=== PATIENT | female | born 1975 | race African-American/Black ===

== ENCOUNTER 2018-01-13 11:38 | Inpatient (IN) | payer OTHER ==
[2018-01-13 14:25] VITALS: BMI 31.6
--- NOTE | 2018-01-13 16:26 | HP ---
CIWA Score Nausea/Vomitin-Mild Nausea/No Vomiting Muscle Tremors: None Anxiety: 4-Mod. Anxious/Guarded Agitation: 4-Moderately Restless Paroxysmal Sweats: No Perspiration Orientation: 0-Oriented Tacttile Disturbances: 2-Mild Itch/Numbness/Burn Auditory Disturbances: 0-None Visual Disturbances: 0-None Headache: 2-Mild CIWA-Ar Total Score: 13 - Admission Criteria OASAS Guidelines: Admission for Medically Managed Detox: Requires at least one of the followin. CIWA greater than 12 2. Seizures within the past 24 hours 3. Delirium tremens within the past 24 hours 4. Hallucinations within the past 24 hours 5. Acute intervention needed for co occurring medical disorder 6. Acute intervention needed for co occurring psychiatric disorder 7. Severe withdrawal that cannot be handled at a lower level of care (continued vomiting, continued diarrhea, abnormal vital signs) requiring intravenous medication and/or fluids 8. Admission ROS [facility] Chief Complaint: PATIENT PRESENTS WITH ETOH WITHDRAWAL SYMPTOMS Allergies/Adverse Reactions: Allergies Allergy/AdvReac Type Severity Reaction Status Date / Time No Known Allergies Allergy Verified 01/13/18 15:41 History of Present Illness: PATIENT PRESENTS WITH ETOH WITHDRAWAL SYMPTOMS. PATIENT STARTED DRINKING AT AGE 13 AND DRINKS 3 PINTS DAILY. LAST DRINK WAS LATE THIS MORNING. PATIENT DENIES H/ O SEIZURE, BLACK OUTS. PATIENT USUALLY HAS DRINK FIRST THING IN THE MORNING. SOCIAL [employer]IJ[employer]MO[employer]. LAST DETOX WAS AT [facility] 10/2017. LONGEST PERIOD OF SOBRIETY 5 YEARS. PATIENT HAS HX OF BINGE DRINKING FOR WEEKS AT A TIME. PMH INCLUDES HTN, ANEMIA AND BIPOLAR DISORDER. PATIENT DENIES SI/HI AND SUICIDE ATTEMPTS. Exam Limitations: No Limitations - Ebola screening Have you traveled outside of the country in the last 21 days: No Have you had contact with anyone from an Ebola affected area: No Have you been sick,other than usual withdrawal symptoms: No Do you have a fever: No - Review of Systems Constitutional: Night Sweats, Changes in sleep EENT: reports: No Symptoms Reported Respiratory: reports: No Symptoms reported Cardiac: reports: No Symptoms Reported GI: reports: Constipated, Poor Fluid Intake : reports: No Symptoms Reported Musculoskeletal: reports: Joint Pain Integumentary: reports: No Symptoms Reported Neuro: reports: Headache, Numbness, Tingling Endocrine: reports: No Symptoms Reported Hematology: reports: Anemia Psychiatric: reports: Orientated x3, Anxious, Depressed Patient History - Patient Medical History Hx Anemia: Yes Hx Asthma: No Hx Chronic Obstructive Pulmonary Disease (COPD): No Hx Cancer: No Hx Cardiac Disorders: No Hx Congestive Heart Failure: No Hx Hypertension: Yes (ON MEDICATION) Hx Hypercholesterolemia: No Hx Pacemaker: No HX Cerebrovascular Accident: No Hx Seizures: No Hx Dementia: No Hx Diabetes: No Hx Gastrointestinal Disorders: No Hx Liver Disease: No Hx Genitourinary Disorders: No Hx Sexually Transmitted Disorders: No Hx Renal Disease (ESRD): No Hx Thyroid Disease: No Hx Human Immunodeficiency Virus (HIV): No Hx Hepatitis C: No Hx Depression: Yes Hx Suicide Attempt: No (denies) Hx Bipolar Disorder: No Hx Schizophrenia: No - Patient Surgical History Past Surgical History: Yes Hx Neurologic Surgery: No Hx Cataract Extraction: No Hx Cardiac Surgery: No Hx Lung Surgery: No Hx Breast Surgery: No Hx Breast Biopsy: No Hx Abdominal Surgery: No Hx Appendectomy: No Hx Cholecystectomy: No Hx Genitourinary Surgery: No Hx Section: Yes (1998) Hx Orthopedic Surgery: No Anesthesia Reaction: No - PPD History Previous Implant?: Yes Documented Results: Negative w/proof Implanted On Prior R Admission?: Yes Date: 10/14/15 Results: NEGATIVE PPD to be Administered?: Yes - Reproductive History Last Menstrual Period: 12/31/17 Patient : No - Smoking Cessation Smoking history: Current every day smoker Have you smoked in the past 12 months: Yes Aproximately how many cigarettes per day: 5 Hx Chewing Tobacco Use: No Initiated information on smoking cessation: Yes 'Breaking Loose' booklet given: 01/13/18 - Substance & Tx. History Hx Alcohol Use: Yes Hx Substance Use: Yes Substance Use Type: Alcohol, Marijuana Hx Substance Use Treatment: Yes - Substances Abused Alcohol Route: Oral Frequency: Daily Amount used: 2 PINTS OF TOYA Age of first use: 14 Date of Last Use: 01/13/18 Marijuana/Hashish Route: Smoking Frequency: 1-3 times last 30 days Amount used: 1 JOINT Age of first use: 15 Date of Last Use: 12/22/17 Family Disease History - Family Disease History Family Disease History: Other: Father (ALCOHOLISM), Mother (ALCOHOLISM) Admission Physical Exam BHS - Vital Signs Vital Signs: Vital Signs - 24 hr 01/13/18 14:17 Temperature 97.8 F Pulse Rate 91 H Respiratory 20 Rate Blood Pressure 136/85 - Physical General Appearance: Yes: No Apparent Distress, Nourished, Appropriately Dressed , Alcohol on Breath, Anxious HEENTM: Yes: EOMI, Hearing grossly Normal, Normocephalic, Normal Voice, LEANNE, Pharynx Normal Respiratory: Yes: Chest Non-Tender, Lungs Clear, Normal Breath Sounds, No Respiratory Distress, No Accessory Muscle Use Neck: Yes: No masses,lesions,Nodules, Supple Breast: Yes: Breast Exam Deferred Cardiology: Yes: Regular Rhythm, Regular Rate, S1, S2 Abdominal: Yes: Normal Bowel Sounds, Non Tender, Soft Genitourinary: Yes: Frequency (WHEN DRINKING ETOH) Back: Yes: Normal Inspection Musculoskeletal: Yes: full range of Motion, Gait Steady, Joint Stiffness Extremities: Yes: Normal Inspection, Normal Range of Motion, Non-Tender Neurological: Yes: chemistry intern II-XII NML intact, Fully Oriented, Alert, Motor Strength 5/5, Normal Response, Numbness, Depressed Affect Integumentary: Yes: Normal Color, Dry, Warm Lymphatic: Yes: Within Normal Limits - Diagnostic (1) Marijuana dependence Current Visit: Yes Status: Chronic (2) Alcohol dependence with uncomplicated withdrawal Current Visit: Yes Status: Acute (3) Hypertension Current Visit: Yes Status: Chronic Qualifiers: Hypertension type: essential hypertension Qualified Code(s): I10 - Essential (primary) hypertension (4) Nicotine dependence Current Visit: Yes Status: Chronic Qualifiers: Nicotine product type: cigarettes Substance use status: uncomplicated Qualified Code(s): F17.210 - Nicotine dependence, cigarettes, uncomplicated Cleared for Admission [facility] - Detox or Rehab [facility] Level of Care: Medically Managed Detox Regimen/Protocol: Librium [facility] Breath Alcohol Content Breath Alcohol Content: 0.039 Urine Pregancy Test - Result Urine Test Results: Negative- NO Line Present Urine Drug Screen - Results Drug Screen Negative: No Urine Drug Screen Results: THC-Marijuana
[2018-01-13] MEDS ORDERED: guaiFENesin/D-METHORPHAN HB 10 ML UNIT-DOSE CUPS PO PRN (16:35)
[2018-01-13] MEDS ORDERED: ACETAMINOPHEN 325 MG TABLET (FP) PO PRN (16:35)
[2018-01-13] MEDS ORDERED: NICOTINE POLACRILEX 2 MG GUM BC PRN (16:35)
[2018-01-13] MEDS ORDERED: MAGNESIUM HYDROX 2400MG/30ML ORAL SUSPENSION 30 ML CUP PO PRN (16:35)
[2018-01-13] MEDS ORDERED: IBUPROFEN 400 MG TABLET (FP) PO PRN (16:35)
[2018-01-13] MEDS ORDERED: LOPERAMIDE HCL 2 MG CAPSULE PO PRN (16:35)
[2018-01-13] MEDS ORDERED: MAGNESIUM CITRATE 300 ML BOTTLE PO PRN (16:35)
[2018-01-13] MEDS ORDERED: MAG HYDROX/AL HYDROX/SIMETH 30 ML UNIT-DOSE CUP PO PRN (16:35)
[2018-01-13] MEDS ORDERED: hydrOXYzine PAMOATE 50 MG CAPSULE (FP) PO PRN (16:35)
[2018-01-13] MEDS ORDERED: P-EPHED 60MG/TRIPROLIDI 2.5MG TABLET PO PRN (16:35)
[2018-01-13] MEDS ORDERED: MENTHOL/PHENOL 1 EACH UD MM PRN (16:35)
[2018-01-13] MEDS ORDERED: chlordiazePOXIDE HCL 25 MG CAPSULE PO PRN (16:38)
[2018-01-13] MEDS: chlordiazePOXIDE HCL 25 MG CAPSULE PO SCH ×2 (18:34→22:40)
[2018-01-13] MEDS ORDERED: MELATONIN 5 MG TABLETS PO PRN (22:00)
[2018-01-13] MEDS: THIAMINE HCL 100 MG TABLET (FP) PO SCH (22:38)
[2018-01-13 22:58] LABS: URINE APPEARANCE CLEAR; URINE BILIRUBIN NEGATIVE (<2.0 mg/dL); URINE COLOR LTYELLOW; URINE GLUCOSE (UA) NEGATIVE (NEGATIVE); URINE KETONE NEGATIVE (NEGATIVE); URINE LEUK ESTERASE NEGATIVE (NEGATIVE); URINE NITRITE NEGATIVE (NEGATIVE); URINE PROTEIN NEGATIVE (NEGATIVE); URINE UROBILINOGEN NEGATIVE mg/dL (0.2-1.0)
[2018-01-14] MEDS: chlordiazePOXIDE HCL 25 MG CAPSULE PO SCH ×4 (05:21→22:25)
--- NOTE | 2018-01-14 08:50 | CONSULT ---
[facility] Psychiatric Consult - Data Date of interview: 01/14/18 Admission source: [facility] Identifying data: This isn a 42 years old female, mother of three, livinmg with family, unemployed, on PA support, with no psychiatric hospitalization history, with no suicidal, homicidal history as well, with history of Alcohol, Cannabis nd Nicotine dependence, is reporting withdrawal symptoms and seeking detox. Substance Abuse History: Smoking history: Current every day smoker. Have you smoked in the past 12 months: Yes. Aproximately how many cigarettes per day: 5. Hx Chewing Tobacco Use: No. Initiated information on smoking cessation: Yes. 'Breaking Loose' booklet given: 01/13/18. - Substance & Tx. History. Hx Alcohol Use: Yes. Hx Substance Use: Yes. Substance Use Type: Alcohol, Marijuana. Hx Substance Use Treatment: Yes. - Substances Abused. Alcohol. Route: Oral. Frequency: Daily. Amount used: 2 PINTS OF TOYA. Age of first use: 14. Date of Last Use: 01/13/18. Marijuana/Hashish. Route: Smoking. Frequency: 1-3 times last 30 days. Amount used: 1 JOINT. Age of first use: 15. Date of Last Use: 12/22/17 Medical History: HTN, Anemia history Psychiatric History: Patient reports history bof anxiety and depression, as per computer there is a history of Bipolar Disorder, patient denies psychiatric hospitalization history, denies suicidal and homicidal history, reports insomnia , taking prior to admission: REMERON 7,5MG PO QHS. LAMICTAL 25MG PO QHS Physical/Sexual Abuse/Trauma History: Denies Additional Comment: REMERON 7,5MG PO QHS. LAMICTAL 25MG PO QHS Mental Status Exam - Mental Status Exam Alert and Oriented to: Person Cognitive Function: Fair Patient Appearance: Unkempt Mood: Sad Affect: Flat Patient Behavior: Sedated, Cooperative Voice Loudness: Mildly Soft/Quiet Thought Process: Circumstantial Thought Disorder: Being Controlled Hallucinations: Denies Suicidal Ideation: Denies Homicidal Ideation: Denies Insight/Judgement: Fair Sleep: Difficulty falling asleep Appetite: Fair Muscle strength/Tone: Mild Hypotonicity Gait/Station: Shuffling Additional Comments: REMERON 7,5MG PO QHS. LAMICTAL 25MG PO QHS Psychiatric Findings - Problem List ([place] 1, 2,3) (1) Alcohol dependence with uncomplicated withdrawal Current Visit: Yes Status: Acute (2) Hypertension Current Visit: Yes Status: Chronic Qualifiers: Hypertension type: essential hypertension Qualified Code(s): I10 - Essential (primary) hypertension (3) Marijuana dependence Current Visit: Yes Status: Chronic (4) Nicotine dependence Current Visit: Yes Status: Chronic Qualifiers: Nicotine product type: cigarettes Substance use status: uncomplicated Qualified Code(s): F17.210 - Nicotine dependence, cigarettes, uncomplicated (5) Substance or medication-induced sleep disorder, insomnia type Current Visit: No Status: Acute - Initial Treatment Plan Initial Treatment Plan: REMERON 7,5MG PO QHS. LAMICTAL 25MG PO QHS
[2018-01-14] MEDS: ASPIRIN 81 MG CHEWABLE TABLETS PO SCH (10:45)
[2018-01-14] MEDS: MIRTAZAPINE 15 MG TABLET (FP) PO SCH (10:45)
[2018-01-14] MEDS: PRENATAL VITAMINS W/ FOLIC ACID TABLET (FP) PO SCH (10:45)
[2018-01-14] MEDS: lamoTRIgine 25 MG TABLET PO SCH (10:46)
[2018-01-14] MEDS: NICOTINE 14 MG/24 HOURS TOPICAL PATCH TD SCH (10:46)
[2018-01-14] MEDS: amLODIPine BESYLATE 5 MG TABLET (FP) PO SCH (10:46)
[2018-01-14] MEDS: ATORVASTATIN CA 20 MG TABLET (FP) PO SCH (10:46)
[2018-01-14] MEDS: HYDROCHLOROTHIAZIDE 25 MG TABLET (FP) PO SCH (10:46)
[2018-01-14 10:58] LABS: HEMATOCRIT 24.5 % (32.4-45.2); MCHC 29.2 g/dl (32.0-36.0); MEAN CELL VOLUME 53.7 fl (80-96); MEAN PLT VOLUME 8.7 fl (7.5-11.1); PLATELET COUNT 550 K/MM3 (134-434); RBC 4.57 M/mm3 (3.60-5.2); RDW 23.8 % (11.6-15.6); WHITE BLOOD COUNT 6.8 K/mm3 (4.0-10.0)
[2018-01-14 11:00] LABS: HEMOGLOBIN 7.2 GM/dL (10.7-15.3); MCH 15.7 pg (25.7-33.7)
--- NOTE | 2018-01-14 11:13 | EKG ---
Test Reason : Blood Pressure : / mmHG Vent. Rate : 095 BPM Atrial Rate : 095 BPM P-R Int : 144 ms QRS Dur : 078 ms QT Int : 368 ms P-R-T Axes : 027 005 002 degrees QTc Int : 462 ms NORMAL SINUS RHYTHM MINIMAL VOLTAGE CRITERIA FOR LVH, MAY BE NORMAL VARIANT BORDERLINE ECG NO PREVIOUS ECGS AVAILABLE Confirmed by LEYDA FINE MD ([id number]) on 01/14/2018 11:12:49 AM Referred By: Confirmed By:LEYDA FINE MD
--- NOTE | 2018-01-14 11:30 | PN ---
S CIWA - CIWA Score Nausea/Vomitin-Mild Nausea/No Vomiting Muscle Tremors: 3 Anxiety: 2 Agitation: 2 Paroxysmal Sweats: 1-Minimal Palms Moist Orientation: 0-Oriented Tacttile Disturbances: 1-Very Mild Itch/Numbness Auditory Disturbances: 1-Very Mild Visual Disturbances: 0-None Headache: 1-Very Mild CIWA-Ar Total Score: 12 BHS Progress Note (SOAP) Subjective: sweat tremor anxiety restlessness low energy Objective: 01/14/18 11:29 Vital Signs Temperature 97.9 F 01/14/18 09:28 Pulse Rate 96 H 01/14/18 09:28 Respiratory Rate 18 01/14/18 09:28 Blood Pressure 132/88 01/14/18 09:28 O2 Sat by Pulse Oximetry (%) Laboratory Last Values WBC 6.8 K/mm3 (4.0-10.0) 01/14/18 07:00 RBC 4.57 M/mm3 (3.60-5.2) 01/14/18 07:00 Hgb 7.2 GM/dL (10.7-15.3) L 01/14/18 07:00 Hct 24.5 % (32.4-45.2) L 01/14/18 07:00 MCV 53.7 fl (80-96) L 01/14/18 07:00 MCH 15.7 pg (25.7-33.7) L 01/14/18 07:00 MCHC 29.2 g/dl (32.0-36.0) L 01/14/18 07:00 RDW 23.8 % (11.6-15.6) H 01/14/18 07:00 Plt Count 550 K/MM3 (134-434) H 01/14/18 07:00 MPV 8.7 fl (7.5-11.1) 01/14/18 07:00 Urine Color Ltyellow 01/13/18 20:17 Urine Appearance Clear 01/13/18 20:17 Urine pH 6.0 (5.0-8.0) 01/13/18 20:17 Ur Specific [place] 1.009 (1.010-1.035) L 01/13/18 20:17 Urine Protein Negative (NEGATIVE) 01/13/18 20: Urine Glucose (UA) Negative (NEGATIVE) 01/13/18 20:17 Urine Ketones Negative (NEGATIVE) 01/13/18 20:17 Urine Blood Negative (NEGATIVE) 01/13/18 20:17 Urine Nitrite Negative (NEGATIVE) 01/13/18 20:17 Urine Bilirubin Negative (<2.0 mg/dL) 01/13/18 20:17 Urine Urobilinogen Negative mg/dL (0.2-1.0) 01/13/18 20:17 Ur Leukocyte Esterase Negative (NEGATIVE) 01/13/18 20:17 lab noted Assessment: 01/14/18 11:30 withdrawal sx Plan: continue detox
[2018-01-14 11:43] LABS: ALBUMIN 2.9 g/dl (3.4-5.0); ALK PHOS 58 U/L (45-117); ANION GAP 5 MMOL/L (8-16); BILIRUBIN,TOTAL 1.3 mg/dL (0.2-1); BLOOD UREA NITROGEN 5 mg/dL (7-18); CALCIUM 8.2 mg/dL (8.5-10.1); CHLORIDE 105 mmol/L (98-107); CO2 26 mmol/L (21-32); CREATININE 0.8 mg/dL (0.55-1.3); GLUCOSE,RANDOM 76 mg/dL (74-106); POTASSIUM 4.1 mmol/L (3.5-5.1); SGOT/AST 14 U/L (15-37); SGPT/ALT 26 U/L (13-61); SODIUM 136 mmol/L (136-145); TOT PROT 6.3 g/dl (6.4-8.2)
[2018-01-14] MEDS ORDERED: FLU VACCINE QUAD 60 MCG/0.5 ML (MDV 18-19) IM ONE (12:00)
[2018-01-14] MEDS: FERROUS SO4 325 MG TABLET (FP) PO SCH (12:25)
[2018-01-14] MEDS: THIAMINE HCL 100 MG TABLET (FP) PO SCH (22:25)
[2018-01-15] MEDS: chlordiazePOXIDE HCL 25 MG CAPSULE PO SCH ×2 (05:22→10:41)
[2018-01-15] MEDS: ASPIRIN 81 MG CHEWABLE TABLETS PO SCH (10:41)
[2018-01-15] MEDS: amLODIPine BESYLATE 5 MG TABLET (FP) PO SCH (10:41)
[2018-01-15] MEDS: PRENATAL VITAMINS W/ FOLIC ACID TABLET (FP) PO SCH (10:41)
[2018-01-15] MEDS: HYDROCHLOROTHIAZIDE 25 MG TABLET (FP) PO SCH (10:41)
[2018-01-15] MEDS: ATORVASTATIN CA 20 MG TABLET (FP) PO SCH (10:41)
[2018-01-15] MEDS: MIRTAZAPINE 15 MG TABLET (FP) PO SCH (10:41)
[2018-01-15] MEDS: lamoTRIgine 25 MG TABLET PO SCH (10:41)
[2018-01-15] MEDS: NICOTINE 14 MG/24 HOURS TOPICAL PATCH TD SCH (10:42)
[2018-01-15] MEDS: FERROUS SO4 325 MG TABLET (FP) PO SCH ×3 (10:42→19:44)
--- NOTE | 2018-01-15 11:04 | PN ---
[facility] CIWA - CIWA Score Nausea/Vomitin-No Nausea/No Vomiting Muscle Tremors: 3 Anxiety: 2 Agitation: 2 Paroxysmal Sweats: 2 Orientation: 0-Oriented Tacttile Disturbances: 0-None Auditory Disturbances: 0-None Visual Disturbances: 0-None Headache: 1-Very Mild CIWA-Ar Total Score: 10 S Progress Note (SOAP) Subjective: sweats agitation interrupted sleep mild shakes Objective: 01/15/18 11:04 Vital Signs Temperature 99.3 F 01/15/18 09:28 Pulse Rate 105 H 01/15/18 09:28 Respiratory Rate 18 01/15/18 09:28 Blood Pressure 125/73 01/15/18 09:28 O2 Sat by Pulse Oximetry (%) Laboratory Tests 01/13/18 01/14/18 01/14/18 20:17 07:00 07:00 WBC 6.8 RBC 4.57 Hgb 7.2 L Hct 24.5 L MCV 53.7 L MCH 15.7 L MCHC 29.2 L RDW 23.8 H Plt Count 550 H MPV 8.7 Sodium Potassium Chloride Carbon Dioxide Anion Gap BUN Creatinine Creat Clearance w eGFR Random Glucose Calcium Total Bilirubin AST ALT Alkaline Phosphatase Total Protein Albumin Urine Color Ltyellow Urine Appearance Clear Urine pH 6.0 Ur Specific [place] 1.009 L Urine Protein Negative Urine Glucose (UA) Negative Urine Ketones Negative Urine Blood Negative Urine Nitrite Negative Urine Bilirubin Negative Urine Urobilinogen Negative Ur Leukocyte Esterase Negative RPR Titer HIV 1&2 Antibody Screen Negative HIV P24 Antigen Negative 01/14/18 01/14/18 07:00 07:00 WBC RBC Hgb Hct MCV MCH MCHC RDW Plt Count MPV Sodium 136 Potassium 4.1 Chloride 105 Carbon Dioxide 26 Anion Gap 5 L BUN 5 L Creatinine 0.8 Creat Clearance w eGFR > 60 Random Glucose 76 Calcium 8.2 L Total Bilirubin 1.3 H AST 14 L ALT 26 Alkaline Phosphatase 58 Total Protein 6.3 L Albumin 2.9 L Urine Color Urine Appearance Urine pH Ur Specific [place] Urine Protein Urine Glucose (UA) Urine Ketones Urine Blood Urine Nitrite Urine Bilirubin Urine Urobilinogen Ur Leukocyte Esterase RPR Titer Nonreactive HIV 1&2 Antibody Screen HIV P24 Antigen aaox3 ambulating no acute distress Assessment: 01/15/18 11:04 withdrawal sx Plan: continue detox increase fluids continue with iron supplement
[2018-01-15] MEDS: chlordiazePOXIDE 5 MG CAPSULE PO SCH ×2 (19:44→22:37)
[2018-01-15] MEDS: THIAMINE HCL 100 MG TABLET (FP) PO SCH (22:37)
[2018-01-16] MEDS: chlordiazePOXIDE 5 MG CAPSULE PO SCH ×2 (06:02→10:23)
[2018-01-16] MEDS: FERROUS SO4 325 MG TABLET (FP) PO SCH ×3 (07:07→17:27)
[2018-01-16] MEDS: ASPIRIN 81 MG CHEWABLE TABLETS PO SCH (10:22)
[2018-01-16] MEDS: MIRTAZAPINE 15 MG TABLET (FP) PO SCH (10:22)
[2018-01-16] MEDS: PRENATAL VITAMINS W/ FOLIC ACID TABLET (FP) PO SCH (10:23)
[2018-01-16] MEDS: HYDROCHLOROTHIAZIDE 25 MG TABLET (FP) PO SCH (10:23)
[2018-01-16] MEDS: amLODIPine BESYLATE 5 MG TABLET (FP) PO SCH (10:23)
[2018-01-16] MEDS: lamoTRIgine 25 MG TABLET PO SCH (10:23)
[2018-01-16] MEDS: ATORVASTATIN CA 20 MG TABLET (FP) PO SCH (10:23)
[2018-01-16] MEDS: NICOTINE 14 MG/24 HOURS TOPICAL PATCH TD SCH (10:24)
--- NOTE | 2018-01-16 10:50 | PN ---
[facility] Progress Note Note: PATIENT CONTINUES WITH DETOX REGIMEN. C/O CONSTIPATION. Vital Signs Temperature 98.8 F 01/16/18 09:46 Pulse Rate 106 H 01/16/18 09:46 Respiratory Rate 16 01/16/18 09:46 Blood Pressure 129/72 01/16/18 09:46 O2 Sat by Pulse Oximetry (%) Laboratory Tests 01/13/18 01/14/18 01/14/18 20:17 07:00 07:00 WBC 6.8 RBC 4.57 Hgb 7.2 L Hct 24.5 L MCV 53.7 L MCH 15.7 L MCHC 29.2 L RDW 23.8 H Plt Count 550 H MPV 8.7 Sodium Potassium Chloride Carbon Dioxide Anion Gap BUN Creatinine Creat Clearance w eGFR Random Glucose Calcium Total Bilirubin AST ALT Alkaline Phosphatase Total Protein Albumin Urine Color Ltyellow Urine Appearance Clear Urine pH 6.0 Ur Specific [place] 1.009 L Urine Protein Negative Urine Glucose (UA) Negative Urine Ketones Negative Urine Blood Negative Urine Nitrite Negative Urine Bilirubin Negative Urine Urobilinogen Negative Ur Leukocyte Esterase Negative RPR Titer HIV 1&2 Antibody Screen Negative HIV P24 Antigen Negative 01/14/18 01/14/18 07:00 07:00 WBC RBC Hgb Hct MCV MCH MCHC RDW Plt Count MPV Sodium 136 Potassium 4.1 Chloride 105 Carbon Dioxide 26 Anion Gap 5 L BUN 5 L Creatinine 0.8 Creat Clearance w eGFR > 60 Random Glucose 76 Calcium 8.2 L Total Bilirubin 1.3 H AST 14 L ALT 26 Alkaline Phosphatase 58 Total Protein 6.3 L Albumin 2.9 L Urine Color Urine Appearance Urine pH Ur Specific [place] Urine Protein Urine Glucose (UA) Urine Ketones Urine Blood Urine Nitrite Urine Bilirubin Urine Urobilinogen Ur Leukocyte Esterase RPR Titer Nonreactive HIV 1&2 Antibody Screen HIV P24 Antigen PE: SKIN WARM AND DRY CAR S1S2 RESP CTA BL GI SOFT, BS+, NT EXT FULL ROM, AMB AD ARLIN A/P WITHDRAWAL SX CONTINUE DETOX ENCOURAGE ORAL FLUIDS CONTINUE CITROMA/MOM PRN CONTINUE TO MONITOR
[2018-01-16 11:55] LABS: BASO % 1.4 % (0-2.0); EOS % 2.5 % (0-4.5); HEMATOCRIT 27.2 % (32.4-45.2); HEMOGLOBIN 7.9 GM/dL (10.7-15.3); LYMPH % 16.5 % (8-40); MCHC 29.2 g/dl (32.0-36.0); MEAN PLT VOLUME 8.6 fl (7.5-11.1); MONO % 8.1 % (3.8-10.2); NEUT % 71.5 % (42.8-82.8); PLATELET COUNT 606 K/MM3 (134-434); RBC 5.04 M/mm3 (3.60-5.2); RDW 24.4 % (11.6-15.6)
[2018-01-16 11:58] LABS: MCH 15.7 pg (25.7-33.7)
[2018-01-16 15:05] LABS: ANISOCYTOSIS 1+; MACROCYTOSIS 0; PLATELET ESTIMATE INCREASED
[2018-01-16] MEDS: chlordiazePOXIDE HCL 10 MG CAPSULE PO SCH ×2 (17:25→22:15)
[2018-01-16] MEDS: THIAMINE HCL 100 MG TABLET (FP) PO SCH (22:15)
[2018-01-17] MEDS: chlordiazePOXIDE HCL 10 MG CAPSULE PO SCH (06:17)
[2018-01-17 07:41] VITALS: TEMP 97.9
[2018-01-17] MEDS: FERROUS SO4 325 MG TABLET (FP) PO SCH (07:47)
[2018-01-17] MEDS: ASPIRIN 81 MG CHEWABLE TABLETS PO SCH (09:11)
[2018-01-17] MEDS: lamoTRIgine 25 MG TABLET PO SCH (09:11)
[2018-01-17] MEDS: ATORVASTATIN CA 20 MG TABLET (FP) PO SCH (09:11)
[2018-01-17] MEDS: MIRTAZAPINE 15 MG TABLET (FP) PO SCH (09:11)
[2018-01-17] MEDS: amLODIPine BESYLATE 5 MG TABLET (FP) PO SCH (09:11)
[2018-01-17] MEDS: HYDROCHLOROTHIAZIDE 25 MG TABLET (FP) PO SCH (09:11)
[2018-01-17] MEDS: PRENATAL VITAMINS W/ FOLIC ACID TABLET (FP) PO SCH (09:12)
[2018-01-17 09:33] VITALS: BP 130/86; PULSE 99
[2018-01-17] MEDS: NICOTINE 14 MG/24 HOURS TOPICAL PATCH TD SCH (10:02)
[2018-01-17 11:06] LABS: BASO % 1.3 % (0-2.0); EOS % 2.7 % (0-4.5); HEMATOCRIT 30.6 % (32.4-45.2); HEMOGLOBIN 8.8 GM/dL (10.7-15.3); LYMPH % 24.3 % (8-40); MCHC 28.8 g/dl (32.0-36.0); MEAN CELL VOLUME 54.3 fl (80-96); MEAN PLT VOLUME 8.5 fl (7.5-11.1); MONO % 6.6 % (3.8-10.2); NEUT % 65.1 % (42.8-82.8); PLATELET COUNT 739 K/MM3 (134-434); RBC 5.63 M/mm3 (3.60-5.2); RDW 24.8 % (11.6-15.6); WHITE BLOOD COUNT 10.9 K/mm3 (4.0-10.0)
--- NOTE | 2018-01-17 11:46 | DS ---
[facility] Detox Discharge Summary Admission Date: 01/13/18 Discharge Date: 01/17/18 - History Present History: Alcohol Dependence Additional Comments: 42 years old female admitted on 01/13/18 for alcohol withdrawal sx completed alcohol detox regimen tolerated well denies alcohol withdrawal sx alert oriented x 3 no acute distress aftercare arms [facility] Pertinent Past History: patient was been picked [facility] to [facility] as per counselor arranged copy of lab result provided to the patient hgb repeat pending continue iron supplement at [facility] - Physical Exam Results Vital Signs: Vital Signs Temperature 97.9 F 01/17/18 09:31 Pulse Rate 99 H 01/17/18 09:31 Respiratory Rate 18 01/17/18 09:31 Blood Pressure 130/86 01/17/18 09:31 O2 Sat by Pulse Oximetry (%) Pertinent Admission Physical Exam Findings: alcohol withdrawal sx chronic anemia Vital Signs Temperature 97.9 F 01/17/18 09:31 Pulse Rate 99 H 01/17/18 09:31 Respiratory Rate 18 01/17/18 09:31 Blood Pressure 130/86 01/17/18 09:31 O2 Sat by Pulse Oximetry (%) Laboratory Last Values WBC 10.0 K/mm3 (4.0-10.0) 01/16/18 07:30 RBC 5.04 M/mm3 (3.60-5.2) 01/16/18 07:30 Hgb 7.9 GM/dL (10.7-15.3) L 01/16/18 07:30 Hct 27.2 % (32.4-45.2) L 01/16/18 07:30 MCV 54.0 fl (80-96) L 01/16/18 07:30 MCH 15.7 pg (25.7-33.7) L 01/16/18 07:30 MCHC 29.2 g/dl (32.0-36.0) L 01/16/18 07:30 RDW 24.4 % (11.6-15.6) H 01/16/18 07:30 Plt Count 606 K/MM3 (134-434) H 01/16/18 07:30 MPV 8.6 fl (7.5-11.1) 01/16/18 07:30 Absolute Neuts (auto) 7.1 K/mm3 (1.5-8.0) 01/16/18 07:30 Neutrophils % 71.5 % (42.8-82.8) 01/16/18 07:30 Lymphocytes % 16.5 % (8-40) 01/16/18 07:30 Monocytes % 8.1 % (3.8-10.2) 01/16/18 07:30 Eosinophils % 2.5 % (0-4.5) 01/16/18 07:30 Basophils % 1.4 % (0-2.0) 01/16/18 07:30 Nucleated RBC % 0 % (0-0) 01/16/18 07:30 Hypochromia 2+ 01/16/18 07:30 Platelet Estimate Increased 01/16/18 07:30 Polychromasia 1+ 01/16/18 07:30 Poikilocytosis 1+ 01/16/18 07:30 Anisocytosis 1+ 01/16/18 07:30 Microcytosis 1+ 01/16/18 07:30 Macrocytosis 0 01/16/18 07:30 Sodium 136 mmol/L (136-145) 01/14/18 07:00 Potassium 4.1 mmol/L (3.5-5.1) 01/14/18 07:00 Chloride 105 mmol/L (98-107) 01/14/18 07:00 Carbon Dioxide 26 mmol/L (21-32) 01/14/18 07:00 Anion Gap 5 MMOL/L (8-16) L 01/14/18 07:00 BUN 5 mg/dL (7-18) L 01/14/18 07:00 Creatinine 0.8 mg/dL (0.55-1.3) 01/14/18 07:00 Creat Clearance w eGFR > 60 (>60) 01/14/18 07:00 Random Glucose 76 mg/dL (74-106) 01/14/18 07:00 Calcium 8.2 mg/dL (8.5-10.1) L 01/14/18 07:00 Total Bilirubin 1.3 mg/dL (0.2-1) H 01/14/18 07:00 AST 14 U/L (15-37) L 01/14/18 07:00 ALT 26 U/L (13-61) 01/14/18 07:00 Alkaline Phosphatase 58 U/L (45-117) 01/14/18 07:00 Total Protein 6.3 g/dl (6.4-8.2) L 01/14/18 07:00 Albumin 2.9 g/dl (3.4-5.0) L 01/14/18 07:00 Urine Color Ltyellow 01/13/18 20:17 Urine Appearance Clear 01/13/18 20:17 Urine pH 6.0 (5.0-8.0) 01/13/18 20:17 Ur Specific [place] 1.009 (1.010-1.035) L 01/13/18 20:17 Urine Protein Negative (NEGATIVE) 01/13/18 20:17 Urine Glucose (UA) Negative (NEGATIVE) 01/13/18 20:17 Urine Ketones Negative (NEGATIVE) 01/13/18 20:17 Urine Blood Negative (NEGATIVE) 01/13/18 20:17 Urine Nitrite Negative (NEGATIVE) 01/13/18 20:17 Urine Bilirubin Negative (<2.0 mg/dL) 01/13/18 20:17 Urine Urobilinogen Negative mg/dL (0.2-1.0) 01/13/18 20:17 Ur Leukocyte Esterase Negative (NEGATIVE) 01/13/18 20:17 RPR Titer Nonreactive (NONREACTIVE) 01/14/18 07:00 HIV 1&2 Antibody Screen Negative 01/14/18 07:00 HIV P24 Antigen Negative 01/14/18 07:00 lab noted hgb repeat pending - Treatment Hospital Course: Detox Protocol Followed, Detoxed Safely, Responded well, Discharged Condition Good, Rehab Referral Accepted Patient has Accepted a Rehab Referral to: [facility] - Medication Discharge Medications: Ambulatory Orders Amlodipine Besylate [Norvasc -] 5 mg PO DAILY #30 tablet 10/16/15 Hydrochlorothiazide [Hctz -] 25 mg PO DAILY #30 tablet 10/16/15 Aspirin 81 mg PO DAILY 01/13/18 Atorvastatin Calcium 20 mg PO DAILY 01/13/18 Docusate Sodium 100 mg PO DAILY 01/13/18 Ferrous Sulfate [Feosol] 325 mg PO Q12H 01/13/18 Lamotrigine [Lamictal -] 25 mg PO DAILY 01/13/18 Lamotrigine [Lamictal] 25 mg PO DAILY #30 tablet 01/14/18 Mirtazapine 7.5 mg PO DAILY #30 tablet 01/14/18 - Diagnosis (1) Anemia Status: Chronic Qualifiers: Anemia type: iron deficiency Iron deficiency anemia type: unspecified iron deficiency Qualified Code(s): D50.9 - Iron deficiency anemia, unspecified (2) Alcohol dependence with uncomplicated withdrawal Status: Acute (3) Hypertension Status: Chronic Qualifiers: Hypertension type: essential hypertension Qualified Code(s): I10 - Essential (primary) hypertension (4) Nicotine dependence Status: Acute Qualifiers: Nicotine product type: cigarettes Substance use status: in withdrawal Qualified Code(s): F17.213 - Nicotine dependence, cigarettes, with withdrawal - AMA Did Patient Leave Against Medical Advice: No
[2018-01-17 12:10] LABS: MCH 15.6 pg (25.7-33.7)
== END 2018-01-17 09:51 | disposition home or self-care (01) | DRG 775 ==
LOC: YASAS 11:38 → Y6N 16:47
PROC: HZ2ZZZZ Detoxification Services for Substance Abuse Treatment (ICD-10-PCS; principal; 2018-01-13)
DX: F10.230 Alcohol dependence with withdrawal, uncomplicated (principal); F12.20 Cannabis dependence, uncomplicated; F17.213 Nicotine dependence, cigarettes, with withdrawal; F19.282 Other psychoactive substance dependence with psychoactive substance-induced sleep disorder; I10 Essential (primary) hypertension; D50.9 Iron deficiency anemia, unspecified
CPT/HCPCS: 36415; 80053; 81003; 85025; 85027; 86593; 87389; 90688; 93005; 93010; G0008

== ENCOUNTER 2023-09-22 12:05 | Inpatient (IN) | payer OTHER ==
[2023-09-22 13:00] VITALS: BMI 30.7
[2023-09-22] MEDS ORDERED: LOPERAMIDE HCL 2 MG CAPSULE PO PRN (15:39)
[2023-09-22] MEDS ORDERED: guaiFENesin 600 MG TABLET.ER (FP) PO PRN (15:39)
[2023-09-22] MEDS ORDERED: NICOTINE POLACRILEX 2 MG LOZENGE BC PRN (15:39)
[2023-09-22] MEDS ORDERED: BISMUTH SUBSALICYLATE 524 MG/30 ML PO PRN (15:39)
[2023-09-22] MEDS ORDERED: BENZONATATE 200 MG CAPSULE PO PRN (15:39)
[2023-09-22] MEDS ORDERED: NALOXONE HCL 0.4 MG/ML VIAL IM PRN (15:39)
[2023-09-22] MEDS ORDERED: NALOXONE (NARCAN) HCL 4 MG/0.1 ML SPRAY NS PRN (15:39)
[2023-09-22] MEDS ORDERED: NICOTINE POLACRILEX 2 MG GUM BUC PRN (15:39)
[2023-09-22] MEDS ORDERED: BENZOCAINE/MENTHOL (CHLORASEPTIC ) LOZENGE MM PRN (15:39)
[2023-09-22] MEDS ORDERED: ACETAMINOPHEN 325 MG TABLET (FP) PO PRN (15:39)
[2023-09-22] MEDS ORDERED: ONDANSETRON *ODT* 4 MG TABLET SL PRN (15:39)
[2023-09-22] MEDS ORDERED: chlordiazePOXIDE HCL 25 MG CAPSULE PO PRN (15:44)
[2023-09-22] MEDS: chlordiazePOXIDE HCL 25 MG CAPSULE PO SCH (17:22)
[2023-09-22] MEDS: NICOTINE 14 MG/24 HOURS TOPICAL PATCH TD SCH (17:22)
[2023-09-22] MEDS: PRENATAL VITAMINS W/ FOLIC ACID TABLET (FP) PO SCH (17:22)
[2023-09-22] MEDS: MELATONIN 5 MG TABLETS PO SCH (22:08)
[2023-09-22] MEDS: THIAMINE 100 MG TABLET PO SCH (22:08)
[2023-09-23] MEDS: ATORVASTATIN CA 20 MG TABLET (FP) PO SCH (11:20)
[2023-09-23] MEDS: FERROUS SO4 325 MG TABLET (FP) PO SCH (11:20)
[2023-09-23] MEDS: amLODIPine BESYLATE 5 MG TABLET (FP) PO SCH (11:21)
[2023-09-23] MEDS: HYDROCHLOROTHIAZIDE 25 MG TABLET (FP) PO SCH (11:21)
[2023-09-23 12:04] LABS: CHLORIDE 104 mmol/L (98-107); POTASSIUM 3.5 mmol/L (3.5-5.1); SODIUM 140 mmol/L (136-145)
[2023-09-23 12:06] LABS: HEMATOCRIT 36.6 % (32.4-45.2); HEMOGLOBIN 12.2 GM/dL (10.7-15.3); MCH 26.6 pg (25.7-33.7); MCHC 33.2 g/dl (32.0-36.0); MEAN CELL VOLUME 80.1 fl (80-96); MEAN PLT VOLUME 7.2 fl (7.5-11.1); PLATELET COUNT 435 10^3/uL (134-434); RBC 4.58 M/mm3 (3.60-5.2); RDW 16.6 % (11.6-15.6); WHITE BLOOD COUNT 6.4 K/mm3 (4.0-10.0)
[2023-09-23 12:16] LABS: ALBUMIN 3.1 g/dl (3.4-5.0); ANION GAP 6 mmol/L (4-13); BLOOD UREA NITROGEN 5.6 mg/dL (7-18); CALCIUM 9.3 mg/dL (8.5-10.1); CO2 30 mmol/L (21-32); GLUCOSE,RANDOM 86 mg/dL (74-106)
[2023-09-23 12:18] LABS: CREATININE 0.8 mg/dL (0.55-1.3)
[2023-09-23 12:19] LABS: BILIRUBIN,TOTAL 0.8 mg/dL (0.2-1); SGOT/AST 12 U/L (15-37); SGPT/ALT 13 U/L (13-61)
[2023-09-23 12:21] LABS: ALK PHOS 76 U/L (45-117); TOT PROT 5.9 g/dl (6.4-8.2)
[2023-09-23 13:53] LABS: HIV INTERPRETATION NEGATIVE (NEGATIVE)
[2023-09-23] MEDS: METHOCARBAMOL 500 MG TABLET PO PRN (22:13)
[2023-09-24] MEDS: chlordiazePOXIDE HCL 25 MG CAPSULE PO SCH (05:26)
[2023-09-24] MEDS: MAGNESIUM HYDROX 2400MG/30ML ORAL SUSPENSION 30 ML CUP PO PRN (09:07)
[2023-09-24] MEDS: POLYETHYLENE GLYCOL (HEALTHYLAX) 3350 17 GM PACKET PO PRN (15:36)
[2023-09-24] MEDS: IBUPROFEN 600 MG TABLET (FP) PO PRN (21:23)
[2023-09-24] MEDS: hydrOXYzine PAMOATE 25 MG CAPSULE (FP) PO PRN (22:11)
[2023-09-24] MEDS: MAG HYDROX/AL HYDROX/SIMETH 30 ML UNIT-DOSE CUP PO PRN (22:13)
[2023-09-25] MEDS ORDERED: chlordiazePOXIDE HCL 10 MG CAPSULE PO PRN
[2023-09-25] MEDS: chlordiazePOXIDE HCL 10 MG CAPSULE PO SCH (05:57)
[2023-09-25] MEDS: IBUPROFEN 400 MG TABLET (FP) PO PRN (06:10)
[2023-09-25] MEDS: DICYCLOMINE HCL 10 MG CAPSULE PO PRN (10:21)
[2023-09-26] MEDS: chlordiazePOXIDE HCL 10 MG CAPSULE PO SCH (05:54)
[2023-09-27] MEDS: chlordiazePOXIDE HCL 10 MG CAPSULE PO ONE (05:23)
[2023-09-27 06:37] VITALS: RESP 18
[2023-09-27 09:17] VITALS: BP 113/81; PULSE 89; TEMP 98.7
== END 2023-09-27 10:30 | disposition home or self-care (01) | DRG 775 ==
LOC: YASAS 12:05 → Y3N 16:37
PROVIDERS: ADMIT Allergy & Immunology; ATTEND Surgery
PROC: HZ2ZZZZ Detoxification Services for Substance Abuse Treatment (ICD-10-PCS; principal; 2023-09-22)
DX: F10.230 Alcohol dependence with withdrawal, uncomplicated (principal); F12.20 Cannabis dependence, uncomplicated; F17.210 Nicotine dependence, cigarettes, uncomplicated; F19.282 Other psychoactive substance dependence with psychoactive substance-induced sleep disorder; D50.9 Iron deficiency anemia, unspecified; E78.5 Hyperlipidemia, unspecified; I10 Essential (primary) hypertension
CPT/HCPCS: 36415; 80053; 80305; 80307; 81025; 85027; 86780; 86803; 87389